=== PATIENT | male | born 1950 | race Caucasian/White ===

== ENCOUNTER 2021-05-18 12:58 | Outpatient (RCR) | payer MEDICARE, MEDICAID, SELFPAY | END 2021-09-07 09:03 | disposition home or self-care (01) | LOC: HO.WCC 12:58 | PROVIDERS: PCP Pediatrics; Visit Provider Physician Assistant | DX: L02.31 Cutaneous abscess of buttock (principal); F84.0 Autistic disorder; I10 Essential (primary) hypertension; Z79.82 Long term (current) use of aspirin; Z79.2 Long term (current) use of antibiotics; Z79.899 Other long term (current) drug therapy | CPT/HCPCS: 10060; 11042; 17250; 87071; 87205; 99212; 99213 ==